=== PATIENT | female | born 1940 | race Caucasian/White ===

== ENCOUNTER → 2016-04-28 | Outpatient (CLI) | payer OTHER ==
[~2016-04-28] MED LIST: ADVAIR HFA1 AE2 IH; ALDACTONE 25MG25 M1 PO; AMLODIPINE BES2.5 MG PO; AMLODIPINE BESYL5 MG PO; ASPIRIN 81M81 MG/TA2 PO; BYETTA 5MC300 MCG/SY SQ; CALCIUM + D 6001 TA1 PO; CALCIUM500 MG PO; CENTRUM PERFORM1 TAB PO; CHLORTHALIDONE25 MG PO; COMBIVENT INH14.7 GM IH; COUMADIN 2MG2 MG/TAB PO; COUMADIN4 MG PO; COUMADIN5 M1 PO; COZAAR100 MG PO; CYMBALTA60 MG PO; DARVOCET N 101 UDTAB PO; DIABETA5 MG PO; DIOVAN160 M1 PO; EC NAPROSYN500 MG PO; FLOVENT 220MCG7.9 GM IH; FOLIC ACID 11 MG/TA1 PO; FOLIC ACID1 MG PO; GLUCOPHAGE XR500 M1 PO; GLUCOTROL 5M5 MG/TAB PO; GLYBURIDE5 MG PO; GUANFACINE1 MG PO; HYGROTON 2525 MG/TAB PO; HYGROTON25 MG PO; HYZAAR 50-12.1 UDTAB PO; INDAPAMIDE2.5 MG PO; KLOR-CON 1010 MEQ PO; KLOR-CON 88 MEQ PO; LANTUS SOLOS100 U/ML SC; LANTUS SOLOS100 U/ML SQ; LEVOTHYROXINE0.1 MG PO; LEVOTHYROXINE0.15 MG PO; LOPRESSOR 225 MG/TAB PO; LOVENOX80 MG/0.8 SC; LOZOL2.5 MG PO; METFORMIN500 MG PO; METHOTREXA2.5 MG/TAB PO; METHOTREXATE2.5 M1 PO; METHOTREXATE2.5 MG PO; METOPROLOL25 MG PO; MICRO-K EXTENCA8 MEQ PO; MULTIVITAMIN1 SGL PO; NEURONTIN100 MG PO; NEURONTIN100 MG/CAP PO; NORCO 325 MG-51 TAB PO; NORVASC 5MG5 MG/TAB PO; NOVOLOG 100U100 U/M1 SQ; NOVOLOG FLEX100 U/ML IV; NOVOLOG FLEX100 U/ML SC; OMEPRAZOLE20 MG PO; OS-CAL 500500 M1 PO; PRILOSEC 20MG20 MG PO; PROAIR HFA0.09 MG/AC; PROAIR HFA0.09 MG/AC IH; SLOW-MAG 6464 MG/TAB PO; SYNTHROID 0.10.15 MG PO; SYNTHROID0.125 MG PO; SYNTHROID0.125 MG/T PO; TENEX1 MG PO; THERAGRAN1 TA1 PO; TYLENOL 500MG500 MG PO; VITAMIN D3400 IU PO; VITAMIN E 400 U4001 PO; ZESTRIL 5MG5 MG PO; ZOCOR 20MG20 MG PO; ZOCOR 40MG40 MG; ZOCOR10 MG PO; ZYRTEC 10MG10 MG PO; [UNRECOGNIZED DRUG - OTHER] PO
== END ==
LOC: SUN.DIA 10:15
DX: E11.65 Type 2 diabetes mellitus with hyperglycemia (principal); Z79.84 Long term (current) use of oral hypoglycemic drugs; Z79.4 Long term (current) use of insulin; E66.9 Obesity, unspecified; Z68.39 Body mass index [BMI] 39.0-39.9, adult; Z71.3 Dietary counseling and surveillance; E78.5 Hyperlipidemia, unspecified; I10 Essential (primary) hypertension; E03.9 Hypothyroidism, unspecified; I51.9 Heart disease, unspecified; I73.9 Peripheral vascular disease, unspecified

== ENCOUNTER → 2016-05-06 | Outpatient (CLI) | payer OTHER | LOC: COL.RAD 09:00 | DX: N18.9 Chronic kidney disease, unspecified (principal) ==

== ENCOUNTER → 2016-07-27 | Outpatient (CLI) | payer OTHER | LOC: SUN.DIA 13:54 | DX: E11.65 Type 2 diabetes mellitus with hyperglycemia (principal); E66.9 Obesity, unspecified; Z68.41 Body mass index [BMI] 40.0-44.9, adult; Z71.3 Dietary counseling and surveillance; I73.9 Peripheral vascular disease, unspecified; E78.5 Hyperlipidemia, unspecified; I10 Essential (primary) hypertension; E03.9 Hypothyroidism, unspecified ==

== ENCOUNTER → 2016-09-07 | Outpatient (CLI) | payer MEDICARE, OTHER | LOC: MC.RAD 10:09 | DX: Z12.31 Encounter for screening mammogram for malignant neoplasm of breast (principal); R92.1 Mammographic calcification found on diagnostic imaging of breast ==

== ENCOUNTER → 2016-10-26 | Outpatient (CLI) | payer MEDICARE, OTHER | LOC: SUN.DIA 10:15 | DX: E11.51 Type 2 diabetes mellitus with diabetic peripheral angiopathy without gangrene (principal); Z79.4 Long term (current) use of insulin; I11.9 Hypertensive heart disease without heart failure; E78.5 Hyperlipidemia, unspecified; E03.9 Hypothyroidism, unspecified; E66.9 Obesity, unspecified; Z68.41 Body mass index [BMI] 40.0-44.9, adult; Z71.3 Dietary counseling and surveillance | CPT/HCPCS: G0108 ==

== ENCOUNTER → 2017-01-25 | Outpatient (CLI) | payer MEDICARE, OTHER | LOC: SUN.DIA 07:52 | DX: Z01.89 Encounter for other specified special examinations (principal) ==

== ENCOUNTER → 2017-03-01 | Outpatient (CLI) | payer MEDICARE, OTHER | LOC: SUN.DIA 02-16 10:37 | DX: E11.51 Type 2 diabetes mellitus with diabetic peripheral angiopathy without gangrene (principal); Z79.4 Long term (current) use of insulin; I11.9 Hypertensive heart disease without heart failure; E78.5 Hyperlipidemia, unspecified; E03.9 Hypothyroidism, unspecified; E66.9 Obesity, unspecified; Z68.39 Body mass index [BMI] 39.0-39.9, adult; Z71.3 Dietary counseling and surveillance | CPT/HCPCS: G0108 ==

== ENCOUNTER → 2017-04-12 | Outpatient (CLI) | payer MEDICARE, OTHER | LOC: SUN.DIA 03-08 08:40 | DX: E11.51 Type 2 diabetes mellitus with diabetic peripheral angiopathy without gangrene (principal); Z79.4 Long term (current) use of insulin; E78.5 Hyperlipidemia, unspecified; I11.9 Hypertensive heart disease without heart failure; E03.9 Hypothyroidism, unspecified; E66.9 Obesity, unspecified; Z71.3 Dietary counseling and surveillance | CPT/HCPCS: G0108 ==

== ENCOUNTER → 2017-06-01 | Outpatient (CLI) | payer MEDICARE, OTHER | LOC: SUN.DIA 04-21 11:40 | DX: E11.51 Type 2 diabetes mellitus with diabetic peripheral angiopathy without gangrene (principal); Z79.4 Long term (current) use of insulin; E78.5 Hyperlipidemia, unspecified; E03.9 Hypothyroidism, unspecified; I11.9 Hypertensive heart disease without heart failure; E66.9 Obesity, unspecified; Z68.37 Body mass index [BMI] 37.0-37.9, adult; Z71.3 Dietary counseling and surveillance | CPT/HCPCS: G0108 ==

== ENCOUNTER → 2017-06-01 | Outpatient (CLI) | payer MEDICARE, OTHER | LOC: SUN.DIA 15:32 | DX: E11.51 Type 2 diabetes mellitus with diabetic peripheral angiopathy without gangrene (principal); Z79.4 Long term (current) use of insulin; I11.9 Hypertensive heart disease without heart failure; E78.5 Hyperlipidemia, unspecified; E03.9 Hypothyroidism, unspecified; E66.9 Obesity, unspecified; Z68.37 Body mass index [BMI] 37.0-37.9, adult; Z71.3 Dietary counseling and surveillance | CPT/HCPCS: G0108 ==

== ENCOUNTER → 2017-08-02 | Outpatient (CLI) | payer MEDICARE | LOC: SUN.DIA 07-13 09:12 | DX: E11.51 Type 2 diabetes mellitus with diabetic peripheral angiopathy without gangrene (principal); Z79.4 Long term (current) use of insulin; I11.9 Hypertensive heart disease without heart failure; E78.5 Hyperlipidemia, unspecified; E03.9 Hypothyroidism, unspecified; E66.9 Obesity, unspecified; Z68.37 Body mass index [BMI] 37.0-37.9, adult; Z71.3 Dietary counseling and surveillance | CPT/HCPCS: G0108 ==

== ENCOUNTER → 2017-08-18 | Outpatient (CLI) | payer MEDICARE | LOC: SUN.DIA 15:43 | DX: E11.40 Type 2 diabetes mellitus with diabetic neuropathy, unspecified (principal); E11.51 Type 2 diabetes mellitus with diabetic peripheral angiopathy without gangrene; Z79.4 Long term (current) use of insulin; I11.9 Hypertensive heart disease without heart failure; E78.5 Hyperlipidemia, unspecified; E03.9 Hypothyroidism, unspecified; E66.9 Obesity, unspecified; Z68.37 Body mass index [BMI] 37.0-37.9, adult; Z71.3 Dietary counseling and surveillance | CPT/HCPCS: G0108 ==

== ENCOUNTER → 2017-11-18 | Outpatient (CLI) | payer MEDICARE | LOC: SUN.DIA 14:05 | DX: E11.40 Type 2 diabetes mellitus with diabetic neuropathy, unspecified (principal); I73.9 Peripheral vascular disease, unspecified; Z79.4 Long term (current) use of insulin; E78.5 Hyperlipidemia, unspecified; E03.9 Hypothyroidism, unspecified; I10 Essential (primary) hypertension; E66.9 Obesity, unspecified | CPT/HCPCS: G0108 ==

== ENCOUNTER → 2017-12-23 | Outpatient (CLI) | payer MEDICARE | LOC: SUN.DIA 11:36 | DX: E11.40 Type 2 diabetes mellitus with diabetic neuropathy, unspecified (principal); I73.9 Peripheral vascular disease, unspecified; E78.5 Hyperlipidemia, unspecified; I10 Essential (primary) hypertension; E66.9 Obesity, unspecified | CPT/HCPCS: G0108 ==

== ENCOUNTER 2018-03-11 20:48 | Emergency (ER) | payer MEDICARE ==
[~2018-03-11] VITALS: Ht 152.4 cm; Wt 86.4 kg
[~2018-03-11 20:48] MED LIST changes: -PROAIR HFA0.09 MG/AC; +ZITHROMAX Z PA250 MG PO; -ZOCOR 40MG40 MG; +ZOCOR 40MG40 MG PO
[2018-03-11 21:00] VITALS: BP 182/106; TEMP 97.7
[2018-03-11 21:41] LABS: INR 2.6 (0.8-3.0)
[2018-03-11 23:41] VITALS: PULSE 78
[2018-03-12] VITALS (239 sets, daily range): O2SAT 78–97
[2018-03-12] MEDS ORDERED: COUMADIN 3MG3 MG/TAB PO (09:42)
[2018-03-12] MEDS ORDERED: TESSALON P100 MG/CAP PO (09:42)
[2018-03-12] MEDS ORDERED: ZITHROMAX 250M250 MG PO (09:42)
[2018-03-12] MEDS ORDERED: TRESIBA FL200 UNIT/1 SQ (09:44)
[2018-03-12] MEDS ORDERED: TRULICITY1.5 MG/0.5 SQ (09:45)
[2018-03-12] MEDS ORDERED: LEXAPRO 10MG10 MG PO ×2 (09:54→17:27)
[2018-03-12] MEDS ORDERED: FORTAMET500 M1 PO (17:26)
[2018-03-12] MEDS ORDERED: NOVOLOG MIX 70/33 ML SQ (17:29)
[2018-03-13] VITALS (666 sets, daily range): O2SAT 87–99
== END 2018-03-11 23:45 | disposition home or self-care (01) ==
LOC: COL.ER 20:48
PROVIDERS: Emergency Medicine
DX: S02.2XXA Fracture of nasal bones, initial encounter for closed fracture (principal); S01.511A Laceration without foreign body of lip, initial encounter; E11.9 Type 2 diabetes mellitus without complications; E78.5 Hyperlipidemia, unspecified; E03.9 Hypothyroidism, unspecified; Z79.01 Long term (current) use of anticoagulants; Z86.718 Personal history of other venous thrombosis and embolism; Z79.4 Long term (current) use of insulin; Z79.51 Long term (current) use of inhaled steroids; W19.XXXA Unspecified fall, initial encounter
CPT/HCPCS: J3010

== ENCOUNTER 2018-03-12 06:52 | Inpatient (IN) | payer MEDICARE ==
[2018-03-12] VITALS (9 sets, daily range): BP systolic 142–163; BP diastolic 55–78; PULSE 68–97; TEMP 97.5–99.3; O2SAT 96–97
[~2018-03-12] VITALS: Ht 152.4 cm; Wt 84.0 kg
[2018-03-12 07:46] LABS: BASO # 0.1 (0.0-0.2); BASO % 0.4 % (0.0-2.0); EOS % 0.1 % (0-4.0); GRAN # 13.5 (1.4-6.5); GRAN % 86.4 % (42.2-75.2); HEMATOCRIT 42.9 % (37.0-47.0); HEMOGLOBIN 15.4 g/dl (12.5-16.0); LYMPH # 1.1 (1.2-3.4); LYMPH % 7.3 % (20.0-51.0); MEAN CELL VOLUME 90 fl (80.0-100.0); MEAN CORPUSCULAR HEMOGLOBIN 32 pg (27.0-31.0); MEAN CORPUSCULAR HGB CONC 36 g/dl (33.0-37.0); MONO # 0.8 (0.1-0.6); MONO % 5.2 % (1.7-9.3); PLATELET COUNT 239 K/mm3 (130-400); RED BLOOD COUNT 4.75 M/mm3 (4.10-5.30); REDCELL DISTRIBUTION WIDTH-CV 12.1 % (11.5-14.5)
[2018-03-12 08:20] LABS: COLLECTION METHOD CLEAN CATCH
[2018-03-12 08:21] LABS: INR 2.4 (0.8-3.0); PROTHROMBIN TIME 27.6 SECONDS (9.7-12.8)
[2018-03-12 08:31] LABS: ALBUMIN 4.4 gm/dL (3.5-5.0); BILIRUBIN,TOTAL 0.8 mg/dL (0.0-1.0); CALCIUM 9.2 mg/dL (8.4-10.2); CREATININE, serum 1.05 mg/dL (0.52-1.25); POTASSIUM 3.6 mmol/L (3.4-5.0); TOTAL PROTEIN 7.7 gm/dL (6.4-8.2)
[2018-03-12 08:35] LABS: PH 6 (5-8); SQUAMOUS EPITHELIAL None Seen /hpf; URINE APPEARANCE Clear; URINE BACTERIA None Seen /hpf; URINE BILIRUBIN Negative (NEGATIVE); URINE BLOOD 1+ (NEGATIVE); URINE COLOR Straw; URINE GLUCOSE 3+ (NEGATIVE); URINE KETONE 1+ (NEGATIVE); URINE LEUKOCYTE ESTERASE Negative (NEGATIVE); URINE NITRATE Negative (NEGATIVE); URINE PROTEIN(semi-quant) 3+ (NEGATIVE); URINE UROBILINOGEN Negative (NEGATIVE)
[2018-03-12] MEDS ORDERED: COUMADIN 3MG3 MG/TAB PO (09:42)
[2018-03-12] MEDS ORDERED: ZITHROMAX 250M250 MG PO (09:42)
[2018-03-12] MEDS ORDERED: TESSALON P100 MG/CAP PO (09:42)
[2018-03-12] MEDS ORDERED: TRESIBA FL200 UNIT/1 SQ (09:44)
[2018-03-12] MEDS ORDERED: TRULICITY1.5 MG/0.5 SQ (09:45)
[2018-03-12] MEDS ORDERED: LEXAPRO 10MG10 MG PO ×2 (09:54→17:27)
[2018-03-12] MEDS ORDERED: FORTAMET500 M1 PO (17:26)
[2018-03-12] MEDS ORDERED: NOVOLOG MIX 70/33 ML SQ (17:29)
[2018-03-13] VITALS (9 sets, daily range): BP systolic 112–153; BP diastolic 40–95; PULSE 50–64; TEMP 97.5–98.2
[2018-03-13 05:52] LABS: BASO % 0.2 % (0.0-2.0); EOS % 0.2 % (0-4.0); GRAN # 10.2 (1.4-6.5); GRAN % 77.1 % (42.2-75.2); LYMPH # 1.9 (1.2-3.4); MEAN CELL VOLUME 94 fl (80.0-100.0); MEAN CORPUSCULAR HGB CONC 34 g/dl (33.0-37.0); MEAN PLATELET VOLUME 10.5 fl (7.4-10.4); MONO # 1.1 (0.1-0.6); PLATELET COUNT 209 K/mm3 (130-400); RED BLOOD COUNT 3.68 M/mm3 (4.10-5.30); REDCELL DISTRIBUTION WIDTH-CV 12.8 % (11.5-14.5)
[2018-03-13 05:56] LABS: HEMATOCRIT 34.4 % (37.0-47.0); HEMOGLOBIN 11.8 g/dl (12.5-16.0); MEAN CORPUSCULAR HEMOGLOBIN 32 pg (27.0-31.0)
[2018-03-13 06:03] LABS: INR 2.5 (0.8-3.0); PROTHROMBIN TIME 28.2 SECONDS (9.7-12.8)
[2018-03-13 06:14] LABS: POTASSIUM 3.1 mmol/L (3.4-5.0)
[2018-03-13 12:32] LABS: HEMOGLOBIN 10.8 g/dl (12.5-16.0)
[2018-03-13 12:33] LABS: HEMATOCRIT 31.7 % (37.0-47.0)
[2018-03-14] VITALS (7 sets, daily range): BP systolic 144–175; BP diastolic 41–67; PULSE 53–61; TEMP 96.5–98.4
[2018-03-14 06:28] LABS: BASO # 0.1 (0.0-0.2); BASO % 0.6 % (0.0-2.0); EOS # 0.3 (0.0-0.7); EOS % 2.6 % (0-4.0); GRAN # 7.1 (1.4-6.5); GRAN % 69.3 % (42.2-75.2); HEMOGLOBIN 11.6 g/dl (12.5-16.0); LYMPH % 19.1 % (20.0-51.0); MEAN CELL VOLUME 94 fl (80.0-100.0); MEAN CORPUSCULAR HEMOGLOBIN 32 pg (27.0-31.0); MEAN CORPUSCULAR HGB CONC 34 g/dl (33.0-37.0); MEAN PLATELET VOLUME 10.3 fl (7.4-10.4); MONO # 0.8 (0.1-0.6); MONO % 7.9 % (1.7-9.3); PLATELET COUNT 206 K/mm3 (130-400); RED BLOOD COUNT 3.59 M/mm3 (4.10-5.30); REDCELL DISTRIBUTION WIDTH-CV 12.6 % (11.5-14.5)
[2018-03-14 06:31] LABS: HEMATOCRIT 33.7 % (37.0-47.0)
[2018-03-14 06:36] LABS: CALCIUM 8.4 mg/dL (8.4-10.2); CREATININE, serum 1.11 mg/dL (0.52-1.25); MAGNESIUM 1.9 mg/dL (1.6-2.3); POTASSIUM 3.8 mmol/L (3.4-5.0)
[2018-03-14 10:18] LABS: PROTHROMBIN TIME 22.5 SECONDS (9.7-12.8)
[2018-03-15] VITALS (8 sets, daily range): BP systolic 139–175; BP diastolic 53–75; PULSE 54–58; TEMP 97.7–99.6
[2018-03-15 07:08] LABS: BASO # 0.1 (0.0-0.2); BASO % 0.4 % (0.0-2.0); EOS # 0.3 (0.0-0.7); EOS % 2.2 % (0-4.0); GRAN # 9.6 (1.4-6.5); GRAN % 80.2 % (42.2-75.2); HEMOGLOBIN 11.4 g/dl (12.5-16.0); LYMPH # 1.4 (1.2-3.4); LYMPH % 11.8 % (20.0-51.0); MEAN CELL VOLUME 94 fl (80.0-100.0); MEAN CORPUSCULAR HEMOGLOBIN 33 pg (27.0-31.0); MEAN CORPUSCULAR HGB CONC 35 g/dl (33.0-37.0); MEAN PLATELET VOLUME 10.3 fl (7.4-10.4); MONO # 0.6 (0.1-0.6); PLATELET COUNT 181 K/mm3 (130-400); RED BLOOD COUNT 3.51 M/mm3 (4.10-5.30); REDCELL DISTRIBUTION WIDTH-CV 12.5 % (11.5-14.5)
[2018-03-15 07:21] LABS: CALCIUM 8.7 mg/dL (8.4-10.2); CREATININE, serum 1.04 mg/dL (0.52-1.25); POTASSIUM 3.5 mmol/L (3.4-5.0)
[2018-03-16 04:45] VITALS: BP 159/49; PULSE 55; TEMP 97.2
[2018-03-16 06:12] LABS: BASO # 0.1 (0.0-0.2); BASO % 0.5 % (0.0-2.0); EOS # 0.3 (0.0-0.7); GRAN # 7.3 (1.4-6.5); GRAN % 73.9 % (42.2-75.2); LYMPH # 1.4 (1.2-3.4); LYMPH % 14.5 % (20.0-51.0); MEAN CELL VOLUME 93 fl (80.0-100.0); MEAN CORPUSCULAR HEMOGLOBIN 32 pg (27.0-31.0); MEAN CORPUSCULAR HGB CONC 35 g/dl (33.0-37.0); MEAN PLATELET VOLUME 10.4 fl (7.4-10.4); MONO # 0.8 (0.1-0.6); MONO % 7.7 % (1.7-9.3); PLATELET COUNT 191 K/mm3 (130-400); REDCELL DISTRIBUTION WIDTH-CV 12.4 % (11.5-14.5)
[2018-03-16 06:13] LABS: HEMATOCRIT 34.3 % (37.0-47.0)
[2018-03-16 06:24] LABS: CALCIUM 8.9 mg/dL (8.4-10.2); CREATININE, serum 0.95 mg/dL (0.52-1.25); POTASSIUM 3.3 mmol/L (3.4-5.0)
[2018-03-16 07:46] VITALS: BP 155/71; PULSE 57; TEMP 98.2
[2018-03-16] MEDS ORDERED: LIPITOR 80MG80 MG PO (07:54)
[2018-03-16] MEDS ORDERED: ASPIRIN 81M81 MG/TA2 PO (07:55)
[2018-03-16] MEDS ORDERED: COZAAR 50MG50 MG/TAB PO (19:19)
== END 2018-03-16 10:40 | DRG 65 ==
LOC: COL.ER 06:52 → MEDICAL 09:38 → ICU 09:38 → MEDICAL 03-13 13:36
PROVIDERS: Family Medicine; Internal Medicine; Physician Assistant
DX: I63.9 Cerebral infarction, unspecified (principal); E87.2 Acidosis; E87.1 Hypo-osmolality and hyponatremia; I16.0 Hypertensive urgency; E11.43 Type 2 diabetes mellitus with diabetic autonomic (poly)neuropathy; I95.1 Orthostatic hypotension; I10 Essential (primary) hypertension; E87.6 Hypokalemia; M79.7 Fibromyalgia; M06.9 Rheumatoid arthritis, unspecified; Z86.718 Personal history of other venous thrombosis and embolism; Z79.01 Long term (current) use of anticoagulants; E78.5 Hyperlipidemia, unspecified; Z91.14 Patient's other noncompliance with medication regimen; S02.2XXA Fracture of nasal bones, initial encounter for closed fracture; W18.30XA Fall on same level, unspecified, initial encounter; N20.0 Calculus of kidney; Z91.81 History of falling
CPT/HCPCS: 99223-AI; 99232-AI; 99233-AI; 99239; A9585; J1815; J1885; J2405; J3010; J3475; J3480; J7030; J7050; Q9967

== ENCOUNTER 2018-03-16 10:41 | Inpatient (IN) | payer MEDICARE ==
[~2018-03-16] VITALS: Ht 152.4 cm; Wt 85.6 kg
[~2018-03-16 10:41] MED LIST changes: +COUMADIN 3MG3 MG/TAB PO; +FORTAMET500 M1 PO; +LEXAPRO 10MG10 MG PO; +LIPITOR 80MG80 MG PO; +NOVOLOG MIX 70/33 ML SQ; +TESSALON P100 MG/CAP PO; +TRESIBA FL200 UNIT/1 SQ; +TRULICITY1.5 MG/0.5 SQ; +ZITHROMAX 250M250 MG PO
[2018-03-16 18:32] VITALS: BP 179/58; PULSE 58; TEMP 98.3
[2018-03-16 18:36] VITALS: BP 170/60; PULSE 60; TEMP 98
[2018-03-16] MEDS ORDERED: COZAAR 50MG50 MG/TAB PO (19:19)
[2018-03-17 02:16] VITALS: BP 206/76; PULSE 54; TEMP 98.4
[2018-03-17 02:59] VITALS: BP 182/64; BP 182/68
[2018-03-17 05:34] VITALS: BP 185/64; PULSE 57
[2018-03-17 12:29] LABS: BASO # 0.1 (0.0-0.2); BASO % 0.5 % (0.0-2.0); EOS # 0.3 (0.0-0.7); EOS % 2.2 % (0-4.0); GRAN # 9.9 (1.4-6.5); GRAN % 76.1 % (42.2-75.2); HEMOGLOBIN 12.4 g/dl (12.5-16.0); LYMPH # 1.8 (1.2-3.4); LYMPH % 14.1 % (20.0-51.0); MEAN CELL VOLUME 93 fl (80.0-100.0); MEAN CORPUSCULAR HEMOGLOBIN 32 pg (27.0-31.0); MEAN CORPUSCULAR HGB CONC 35 g/dl (33.0-37.0); MEAN PLATELET VOLUME 10.4 fl (7.4-10.4); MONO # 0.9 (0.1-0.6); MONO % 6.7 % (1.7-9.3); PLATELET COUNT 230 K/mm3 (130-400); RED BLOOD COUNT 3.85 M/mm3 (4.10-5.30); REDCELL DISTRIBUTION WIDTH-CV 12.8 % (11.5-14.5)
[2018-03-17 12:31] LABS: HEMATOCRIT 35.9 % (37.0-47.0)
[2018-03-17 12:41] LABS: PROTHROMBIN TIME 22.8 SECONDS (9.7-12.8)
[2018-03-17 12:46] LABS: ALBUMIN 3.5 gm/dL (3.5-5.0); BILIRUBIN,TOTAL 0.7 mg/dL (0.0-1.0); CALCIUM 8.9 mg/dL (8.4-10.2); CREATININE, serum 1.18 mg/dL (0.52-1.25); MAGNESIUM 1.3 mg/dL (1.6-2.3); POTASSIUM 3.8 mmol/L (3.4-5.0); TOTAL PROTEIN 6.4 gm/dL (6.4-8.2)
[2018-03-17 15:12] VITALS: BP 150/53; PULSE 58; TEMP 97.7
[2018-03-18 03:24] VITALS: BP 164/49; PULSE 56; TEMP 98.5
[2018-03-18 06:58] LABS: INR 1.9 (0.8-3.0); PROTHROMBIN TIME 21.5 SECONDS (9.7-12.8)
[2018-03-18 08:34] VITALS: BP 148/53; PULSE 59
[2018-03-18 17:46] VITALS: BP 150/58; PULSE 60; TEMP 98.7
[2018-03-19 04:43] VITALS: BP 159/60; PULSE 54; TEMP 97.8
[2018-03-19 05:57] LABS: INR 1.9 (0.8-3.0); PROTHROMBIN TIME 22.1 SECONDS (9.7-12.8)
[2018-03-19 18:37] VITALS: BP 147/44; PULSE 58; TEMP 98.5
[2018-03-20 04:20] VITALS: BP 154/52; PULSE 57; TEMP 98.2
[2018-03-20 06:04] LABS: INR 2.1 (0.8-3.0); PROTHROMBIN TIME 23.5 SECONDS (9.7-12.8)
[2018-03-20 16:45] VITALS: BP 188/71; PULSE 61; TEMP 97.7
[2018-03-20 18:04] VITALS: BP 143/38; PULSE 58
[2018-03-21 04:11] VITALS: BP 145/43; PULSE 51; TEMP 97.8
[2018-03-21 07:16] LABS: INR 2.1 (0.8-3.0); PROTHROMBIN TIME 23.5 SECONDS (9.7-12.8)
[2018-03-21 15:09] VITALS: BP 117/39; PULSE 55; TEMP 98.3
[2018-03-22 05:23] VITALS: BP 175/49; PULSE 53; TEMP 98.3
[2018-03-22 05:25] VITALS: BP 173/55; PULSE 51
[2018-03-22 05:26] VITALS: BP 147/59; PULSE 57
[2018-03-22 06:40] LABS: INR 2.2 (0.8-3.0); PROTHROMBIN TIME 25.5 SECONDS (9.7-12.8)
[2018-03-22 09:00] VITALS: BP 151/51
[2018-03-22 17:51] VITALS: BP 151/51; PULSE 56; TEMP 98.3
[2018-03-23 05:00] VITALS: BP 148/47; PULSE 58; TEMP 97.9
[2018-03-23 05:02] VITALS: BP 148/59; PULSE 63
[2018-03-23 05:03] VITALS: BP 163/66; PULSE 69
[2018-03-23 06:48] LABS: BASO # 0.1 (0.0-0.2); BASO % 0.6 % (0.0-2.0); EOS # 0.3 (0.0-0.7); EOS % 3.7 % (0-4.0); GRAN # 5.9 (1.4-6.5); GRAN % 66.1 % (42.2-75.2); HEMOGLOBIN 10.7 g/dl (12.5-16.0); LYMPH # 1.9 (1.2-3.4); LYMPH % 20.7 % (20.0-51.0); MEAN CELL VOLUME 97 fl (80.0-100.0); MEAN CORPUSCULAR HEMOGLOBIN 32 pg (27.0-31.0); MEAN CORPUSCULAR HGB CONC 33 g/dl (33.0-37.0); MEAN PLATELET VOLUME 10.5 fl (7.4-10.4); MONO # 0.8 (0.1-0.6); MONO % 8.7 % (1.7-9.3); PLATELET COUNT 204 K/mm3 (130-400); RED BLOOD COUNT 3.33 M/mm3 (4.10-5.30); REDCELL DISTRIBUTION WIDTH-CV 12.9 % (11.5-14.5)
[2018-03-23 06:49] LABS: HEMATOCRIT 32.3 % (37.0-47.0)
[2018-03-23 06:56] LABS: INR 2.3 (0.8-3.0); PROTHROMBIN TIME 26.3 SECONDS (9.7-12.8)
[2018-03-23 07:04] LABS: CALCIUM 9.1 mg/dL (8.4-10.2); CREATININE, serum 1.17 mg/dL (0.52-1.25); MAGNESIUM 1.3 mg/dL (1.6-2.3)
[2018-03-23 17:34] VITALS: BP 144/54; PULSE 60; TEMP 98.5
[2018-03-24 04:01] VITALS: BP 145/49; PULSE 57; TEMP 98.5
[2018-03-24 06:17] VITALS: BP 156/49
[2018-03-24 06:43] LABS: RETIC # 0.07 M/mm3 (0.02-0.16)
[2018-03-24 07:01] LABS: INR 2.2 (0.8-3.0)
[2018-03-24 07:09] LABS: IRON,SERUM 55 ug/dL (35-150)
[2018-03-24 07:18] LABS: TOTAL IRON BINDING CAPACITY 333 ug/dL (265-497)
[2018-03-24 07:43] LABS: FERRITIN 29 ng/mL (11-264)
[2018-03-24 17:39] VITALS: BP 171/66; PULSE 56; TEMP 98.5
[2018-03-24 18:14] LABS: FOLATE (FOLIC ACID) 13.4 ng/mL (7.0-31.4)
[2018-03-25 05:20] VITALS: BP 129/50; PULSE 58; TEMP 98.5
[2018-03-25 06:02] VITALS: BP 171/52; PULSE 57
[2018-03-25 06:04] VITALS: BP 167/54; PULSE 63
[2018-03-25] MEDS ORDERED: COUMADIN 2MG2 MG/TAB PO (09:07)
[2018-03-25] MEDS ORDERED: COUMADIN 1MG1 MG/TAB PO (09:08)
[2018-03-25] MEDS ORDERED: LOPRESSOR 225 MG/TAB PO (09:08)
[2018-03-25] MEDS ORDERED: COZAAR100 MG PO (09:09)
[2018-03-25] MEDS ORDERED: ALDACTONE50 MG PO (09:09)
[2018-03-25] MEDS ORDERED: FERRO-TIME325 MG PO (09:11)
== END 2018-03-25 14:10 | disposition home or self-care (01) | DRG 57 ==
PROVIDERS: Internal Medicine
DX: I69.354 Hemiplegia and hemiparesis following cerebral infarction affecting left non-dominant side (principal); E11.65 Type 2 diabetes mellitus with hyperglycemia; I10 Essential (primary) hypertension; S02.2XXD Fracture of nasal bones, subsequent encounter for fracture with routine healing; W18.30XD Fall on same level, unspecified, subsequent encounter; E78.5 Hyperlipidemia, unspecified; M79.7 Fibromyalgia; M06.9 Rheumatoid arthritis, unspecified; J45.909 Unspecified asthma, uncomplicated; Z79.4 Long term (current) use of insulin; Z91.81 History of falling; Z79.01 Long term (current) use of anticoagulants; E87.6 Hypokalemia; I95.1 Orthostatic hypotension; E11.43 Type 2 diabetes mellitus with diabetic autonomic (poly)neuropathy
CPT/HCPCS: 99223-AI; 99232-AI; 99233-AI; 99239; J1815

== ENCOUNTER 2018-04-03 13:01 | Inpatient (IN) | payer MEDICARE ==
[2018-04-03] VITALS (331 sets, daily range): BP systolic 138–189; BP diastolic 69–102; PULSE 62–75; TEMP 98.7–98.9; O2SAT 93–100
[~2018-04-03] VITALS: Ht 152.4 cm; Wt 86.0 kg
[~2018-04-03 13:01] MED LIST changes: +ALDACTONE50 MG PO; +COUMADIN 1MG1 MG/TAB PO; +COZAAR 50MG50 MG/TAB PO; +FERRO-TIME325 MG PO
[2018-04-03 13:32] LABS: BASO # 0.1 (0.0-0.2); BASO % 0.7 % (0.0-2.0); EOS # 0.4 (0.0-0.7); EOS % 3.3 % (0-4.0); GRAN # 8.2 (1.4-6.5); GRAN % 69.8 % (42.2-75.2); HEMATOCRIT 32.8 % (37.0-47.0); HEMOGLOBIN 10.9 g/dl (12.5-16.0); LYMPH # 2.3 (1.2-3.4); LYMPH % 19.9 % (20.0-51.0); MEAN CELL VOLUME 97 fl (80.0-100.0); MEAN CORPUSCULAR HEMOGLOBIN 32 pg (27.0-31.0); MEAN CORPUSCULAR HGB CONC 33 g/dl (33.0-37.0); MEAN PLATELET VOLUME 10.6 fl (7.4-10.4); MONO # 0.7 (0.1-0.6); PLATELET COUNT 256 K/mm3 (130-400); RED BLOOD COUNT 3.38 M/mm3 (4.10-5.30); REDCELL DISTRIBUTION WIDTH-CV 13.7 % (11.5-14.5)
[2018-04-03 13:37] LABS: INR 1.7 (0.8-3.0)
[2018-04-03 13:43] LABS: ALBUMIN 4.2 gm/dL (3.5-5.0); BILIRUBIN,TOTAL 0.4 mg/dL (0.0-1.0); CALCIUM 10.2 mg/dL (8.4-10.2); CREATININE, serum 1.43 mg/dL (0.52-1.25); POTASSIUM 4.7 mmol/L (3.4-5.0); TOTAL PROTEIN 7.2 gm/dL (6.4-8.2)
[2018-04-03 13:54] LABS: TROPONIN-I 0.012 ng/mL (0.000-0.034)
[2018-04-03 14:20] LABS: COLLECTION METHOD CATHETER
[2018-04-03 14:33] LABS: HYALINE CAST >12 /lpf; PH 5 (5-8); SQUAMOUS EPITHELIAL 0-2 /hpf; URINE APPEARANCE Clear; URINE BACTERIA None Seen /hpf; URINE BILIRUBIN Negative (NEGATIVE); URINE BLOOD Negative (NEGATIVE); URINE COLOR Yellow; URINE GLUCOSE 3+ (NEGATIVE); URINE KETONE Negative (NEGATIVE); URINE LEUKOCYTE ESTERASE Negative (NEGATIVE); URINE NITRATE Negative (NEGATIVE); URINE PROTEIN(semi-quant) 1+ (NEGATIVE); URINE RBC 0-2 /hpf; URINE UROBILINOGEN Negative (NEGATIVE)
--- NOTE | 2018-04-03 18:42 | NUR ---
Patient arrives to room. She is oriented to room and call light. Granddaughter at bedside. Plan of care discussed. Blood sugar checked. No change to insulin gtt at this time. Care assumed.
--- NOTE | 2018-04-03 19:36 | NUR ---
BEDSIDE REPORT GIVEN TO DARION LUNDBERG
--- NOTE | 2018-04-03 21:01 | NUR ---
Patient has elevated BP, last pressure systolic 190; called Hospitalist to request PRN order.
[2018-04-04] VITALS (710 sets, daily range): BP systolic 119–214; BP diastolic 41–62; PULSE 63–81; TEMP 97.7–98.4; O2SAT 90–99
--- NOTE | 2018-04-04 00:31 | NUR ---
Assisted up to bathroom with assistance of two. Reported some initial dizziness after sitting up. Dangled for approximately one minute prior to ambulation. Gait shuffling but steady. No other concerns or complaints at this time.
--- NOTE | 2018-04-04 01:14 | NUR ---
Insulin on hold for last 4 hours due to blood glucose between 84-107. Hostpitalist notified. DC'd insulin drip and will transition to Sliding scale.
--- NOTE | 2018-04-04 04:00 | NUR ---
Patient resting in bed with eyes shut; sleeps between disturbances. No concerns at this time.
[2018-04-04 06:00] LABS: BASO # 0.1 (0.0-0.2); BASO % 0.5 % (0.0-2.0); EOS # 0.4 (0.0-0.7); EOS % 3.4 % (0-4.0); GRAN # 9.4 (1.4-6.5); GRAN % 72.4 % (42.2-75.2); LYMPH # 2.3 (1.2-3.4); LYMPH % 17.4 % (20.0-51.0); MEAN CELL VOLUME 97 fl (80.0-100.0); MEAN CORPUSCULAR HGB CONC 34 g/dl (33.0-37.0); MEAN PLATELET VOLUME 10.4 fl (7.4-10.4); MONO # 0.8 (0.1-0.6); MONO % 5.8 % (1.7-9.3); PLATELET COUNT 205 K/mm3 (130-400); REDCELL DISTRIBUTION WIDTH-CV 13.9 % (11.5-14.5)
[2018-04-04 06:04] LABS: INR 1.8 (0.8-3.0); PROTHROMBIN TIME 20.5 SECONDS (9.7-12.8)
[2018-04-04 06:15] LABS: HEMOGLOBIN 8.9 g/dl (12.5-16.0); MEAN CORPUSCULAR HEMOGLOBIN 33 pg (27.0-31.0)
[2018-04-04 06:16] LABS: HEMATOCRIT 26.3 % (37.0-47.0)
[2018-04-04 06:36] LABS: CALCIUM 9.1 mg/dL (8.4-10.2); CREATININE, serum 0.98 mg/dL (0.52-1.25); MAGNESIUM 1.1 mg/dL (1.6-2.3); POTASSIUM 3.9 mmol/L (3.4-5.0)
--- NOTE | 2018-04-04 07:15 | NUR ---
Report received from DARION Frazier.
--- NOTE | 2018-04-04 08:00 | NUR ---
Assessment completed. Pt resting in bed, easily arousable. denies any pain. Discussed plan of care r/t monitoring blood sugars and starting diet this morning. Pt verbalizes understanding. CAll light in reach.
--- NOTE | 2018-04-04 11:02 | NUR ---
horse stud worker attended clinical rounds and met with patient to discuss discharge planning. Patient was recently [facility] and is a 30 day readmission. Patient lives at home with her son. Patient was unable to successfully return home. Dr Antoine discussed the need for short term skilled care upon discharge. Worker provided [place] [facility] options and patient chose 1. [facility] and 2. [facility] and signed Choice form. Worker gave referrals and will await screening. Patient states she will talk to her children about her plan.
--- NOTE | 2018-04-04 11:30 | NUR ---
Rehab here at bedside. x1 assist pt to chair. Pt has steady gait. Tolerated well. Call light in reach.
--- NOTE | 2018-04-04 12:00 | NUR ---
Pt still up in chair. No complaints. VSS. Discussed plan of care r/t transferring to different room. Verbalized understanding.
--- NOTE | 2018-04-04 12:50 | NUR ---
Report given to DARION Barone
--- NOTE | 2018-04-04 12:55 | NUR ---
Pt transferred to room 327 via wheelchair. Call light in reach. Lunch tray set up for pt.
--- NOTE | 2018-04-04 13:59 | NUR ---
[facility] with [facility] accepts patient to skilled care and will need to obtain pre-authorization from [facility] prior to acceptance. Note, that tomorrow (04/05/2017) is a holiday and insurance is not open, therefore, no authorization for transfer can be obtained. Patient was moved to surgical floor, today, from ICU. Patient states she has talked with her children and they are aware and agree to the discharge plan.
--- NOTE | 2018-04-04 14:24 | NUR ---
First visit from the [facility] surgeon/general dermatologist. No needs right now.
--- NOTE | 2018-04-04 14:57 | NUR ---
Patient resting in bed. Report from nurse in ICU. Patient transferred to from [facility]. She has lunch & her MG replacement completed. Will continue to monitor
[2018-04-04] MEDS ORDERED: TRESIBA FL200 UNIT/1 SQ (15:52)
--- NOTE | 2018-04-04 16:05 | NUR ---
Pharmacy notifed about coumadin dosing. They placed order for tonight. They will continue to [facility].
--- NOTE | 2018-04-04 19:04 | NUR ---
Patient has been up and down to the bathroom one assist with walker steady gait. She did well with dinner insulin per orders. Report to Treasure ORLANDO
--- NOTE | 2018-04-04 19:20 | NUR ---
Patient resting in bed. Denies pain. A&O. Assessment WNL. IV fluids infusing to RF IV. Blood pressure WNL after PRN blood pressure medication administration. Will continue to monitor.
--- NOTE | 2018-04-04 20:40 | NUR ---
PT blood pressure WNL after PRN medication administered. Will continue to monitor.
[2018-04-05 03:13] VITALS: BP 130/40; PULSE 64; TEMP 98.5
--- NOTE | 2018-04-05 06:46 | NUR ---
Pt resting in bed after ambulating to bathroom. Report given to Cata ORLANDO and Judi ORLANDO. Pt slept well throughout the night. VSS after administration of PRN blood pressure meds.
[2018-04-05 07:29] LABS: BASO % 0.4 % (0.0-2.0); EOS # 0.4 (0.0-0.7); EOS % 3.5 % (0-4.0); GRAN # 7.7 (1.4-6.5); GRAN % 71.8 % (42.2-75.2); LYMPH # 1.9 (1.2-3.4); MEAN CELL VOLUME 99 fl (80.0-100.0); MEAN CORPUSCULAR HGB CONC 34 g/dl (33.0-37.0); MEAN PLATELET VOLUME 10.5 fl (7.4-10.4); MONO # 0.6 (0.1-0.6); MONO % 5.8 % (1.7-9.3); PLATELET COUNT 191 K/mm3 (130-400); RED BLOOD COUNT 2.65 M/mm3 (4.10-5.30); REDCELL DISTRIBUTION WIDTH-CV 14.1 % (11.5-14.5)
[2018-04-05 07:35] LABS: HEMATOCRIT 26.2 % (37.0-47.0); HEMOGLOBIN 8.8 g/dl (12.5-16.0); MEAN CORPUSCULAR HEMOGLOBIN 33 pg (27.0-31.0)
[2018-04-05 07:40] LABS: CALCIUM 9.1 mg/dL (8.4-10.2); CREATININE, serum 1.09 mg/dL (0.52-1.25); MAGNESIUM 1.7 mg/dL (1.6-2.3); POTASSIUM 4.1 mmol/L (3.4-5.0)
[2018-04-05 07:43] LABS: INR 1.6 (0.8-3.0); PROTHROMBIN TIME 18.4 SECONDS (9.7-12.8)
[2018-04-05 07:59] VITALS: BP 136/51; PULSE 67; TEMP 97.6
--- NOTE | 2018-04-05 09:25 | NUR ---
Nursing entered room this morning, patient resting in bed with eyes closed. Assessment complete. Patient ordered breakfast and was assisted to recliner, gait was fair, patient declined to use walker, only wanted one assit from staff as recliner was right next to the bed. After patient was finished with breakfast she was assisted with bathing and then back to bed. Nursing checked on patient at this time and she requested to get up and brush teeth and wash her face. Toleratated activity well. Balance was good with walker. Patient then assisted back to bed.
[2018-04-05 11:28] VITALS: BP 159/60; PULSE 58; TEMP 98.5
[2018-04-05 16:18] VITALS: BP 148/54; PULSE 65; TEMP 97.8
[2018-04-05 20:28] VITALS: BP 125/42; PULSE 66; TEMP 98.1
--- NOTE | 2018-04-05 21:45 | NUR ---
Assessment completed. Patient is A&O x 4, currently sitting up in bed visiting with daughter. VIET, on room air. Tele maintained. Reports that her left middle finger tip has bothered her throughout the day, went over patient being started on an antibiotic for her finger and verbalized understanding. Denies any nausea. Up with standby assist with walker and gait belt, gait is steady. Voiding with no difficulities. Denies any concerns or needs at this time. Bed is in a low position with call light in reach.
[2018-04-06 00:19] VITALS: BP 126/44; PULSE 67; TEMP 98.5
[2018-04-06 03:43] VITALS: BP 117/35; PULSE 66; TEMP 98.6
--- NOTE | 2018-04-06 06:45 | NUR ---
resting in bed, bedside shift report received from DARION Hankins, assisted up to bathroom
--- NOTE | 2018-04-06 07:09 | NUR ---
Patient has rested well through the night. VSS. Continues to deny any pain. Up through the night with standby assist with walker. Denies any concerns or needs. Report given to DARION Paige
--- NOTE | 2018-04-06 07:35 | NUR ---
resting in bed reviewing menu, full assessment completed, see interventions for further info, will ordr breakast soon
[2018-04-06 07:44] LABS: BASO # 0.1 (0.0-0.2); BASO % 0.5 % (0.0-2.0); EOS # 0.4 (0.0-0.7); EOS % 4.7 % (0-4.0); GRAN # 5.8 (1.4-6.5); GRAN % 62.5 % (42.2-75.2); LYMPH # 2.3 (1.2-3.4); LYMPH % 24.7 % (20.0-51.0); MEAN CELL VOLUME 98 fl (80.0-100.0); MEAN CORPUSCULAR HGB CONC 34 g/dl (33.0-37.0); MEAN PLATELET VOLUME 10.6 fl (7.4-10.4); MONO # 0.7 (0.1-0.6); MONO % 7.2 % (1.7-9.3); PLATELET COUNT 188 K/mm3 (130-400); RED BLOOD COUNT 2.52 M/mm3 (4.10-5.30); REDCELL DISTRIBUTION WIDTH-CV 14.2 % (11.5-14.5)
[2018-04-06 07:52] LABS: CALCIUM 8.8 mg/dL (8.4-10.2); CREATININE, serum 1.09 mg/dL (0.52-1.25)
[2018-04-06 08:00] LABS: HEMATOCRIT 24.7 % (37.0-47.0); HEMOGLOBIN 8.3 g/dl (12.5-16.0); MEAN CORPUSCULAR HEMOGLOBIN 33 pg (27.0-31.0)
[2018-04-06 08:07] VITALS: BP 156/60; PULSE 61; TEMP 98.6
[2018-04-06 08:31] LABS: INR 1.9 (0.8-3.0); PROTHROMBIN TIME 21.2 SECONDS (9.7-12.8)
--- NOTE | 2018-04-06 09:20 | NUR ---
Dr Cloud and care team in to see patient
--- NOTE | 2018-04-06 09:40 | NUR ---
ambulating in wills with physical therapy
--- NOTE | 2018-04-06 10:20 | NUR ---
SW met with patient to present IM and verbally discuss the contents. Patient is agreeable and signed the form. Copy provided to patient and original placed in the chart. Patient is dc today to [facility] for skilled care. Transport scheduled for 1pm
--- NOTE | 2018-04-06 10:51 | NUR ---
appears to be sleeping
[2018-04-06 11:07] VITALS: BP 156/60; PULSE 61; TEMP 98.6
[2018-04-06 11:10] VITALS: BP 129/47; PULSE 62; TEMP 97.9
--- NOTE | 2018-04-06 12:00 | NUR ---
sitting up in bed eating lunch, denies needs
[2018-04-06] MEDS ORDERED: MONODOX100 PO (12:30)
[2018-04-06] MEDS ORDERED: LOPRESSOR 225 MG/TAB PO ×2 (12:31→13:45)
[2018-04-06] MEDS ORDERED: COUMADIN4 MG PO (12:31)
[2018-04-06] MEDS ORDERED: ALDACTONE50 MG PO ×2 (12:31→13:45)
[2018-04-06] MEDS ORDERED: LEVEMIR100 U/ML SQ (12:33)
[2018-04-06] MEDS ORDERED: NOVLOG SQ (12:33)
--- NOTE | 2018-04-06 13:00 | NUR ---
resting in chair waiting for transver to [facility]
--- NOTE | 2018-04-06 13:25 | NUR ---
INT discontinued, into for transfer, discharged per WC
--- NOTE | 2018-04-06 13:37 | NUR ---
report called to DARION Anthony at [facility]
[2018-04-06] MEDS ORDERED: COZAAR100 MG PO (13:45)
--- NOTE | 2018-04-06 14:21 | NUR ---
Dr Landry's nurse called and stated the Dr does not want to see her until she leaves [facility] unless they feel she needs to be seen, called and notified Gabrielel RN at [facility] and she verbalizes understanding
== END 2018-04-06 13:37 | DRG 683 ==
LOC: COL.ER 13:01 → ICU 15:34 → JCC 15:34
PROVIDERS: Emergency Medicine; Nurse Practitioner Family; Physician Assistant; ADMIT Internal Medicine
DX: N17.9 Acute kidney failure, unspecified (principal); E87.2 Acidosis; E86.0 Dehydration; E11.65 Type 2 diabetes mellitus with hyperglycemia; I10 Essential (primary) hypertension; E11.40 Type 2 diabetes mellitus with diabetic neuropathy, unspecified; Z79.4 Long term (current) use of insulin; E78.5 Hyperlipidemia, unspecified; M79.7 Fibromyalgia; M06.9 Rheumatoid arthritis, unspecified; J45.909 Unspecified asthma, uncomplicated; Z86.718 Personal history of other venous thrombosis and embolism; Z79.01 Long term (current) use of anticoagulants; Z86.73 Personal history of transient ischemic attack (TIA), and cerebral infarction without residual deficits
CPT/HCPCS: 99223-AI; 99232-AI; 99233-AI; J0360; J1815; J3475; J7030

== ENCOUNTER 2018-05-16 06:54 | Day surgery (SDC) | payer MEDICARE ==
[~2018-05-16] VITALS: Ht 152.4 cm; Wt 38.9 kg
[2018-05-16] VITALS (7 sets, daily range): BP systolic 105–140; BP diastolic 50–81; PULSE 55–62; TEMP 98.2
[~2018-05-16 06:54] MED LIST changes: +LEVEMIR100 U/ML SQ; +MONODOX100 PO; +NOVLOG SQ
[2018-05-16] MEDS ORDERED: TESSALON P100 MG/CAP PO (08:14)
[2018-05-16] MEDS ORDERED: LIPITOR 80MG80 MG PO (08:15)
[2018-05-16] MEDS ORDERED: ASPIRIN 81M81 MG/TA2 PO (08:15)
[2018-05-16] MEDS ORDERED: IRON TABLETS325 MG PO (08:16)
[2018-05-16] MEDS ORDERED: NOVOLOG 100U100 U/M1 SQ (08:17)
[2018-05-16] MEDS ORDERED: ALDACTONE 25MG25 M1 PO (08:17)
[2018-05-16] MEDS ORDERED: LOPRESSOR 225 MG/TAB PO (08:18)
[2018-05-16] MEDS ORDERED: TRULICITY1.5 MG/0.5 SQ (08:19)
[2018-05-16] MEDS ORDERED: COZAAR100 MG PO (08:19)
[2018-05-16] MEDS ORDERED: COUMADIN4 MG PO (08:20)
[2018-05-16] MEDS ORDERED: LEVEMIR100 U/ML SQ (08:20)
--- NOTE | 2018-05-16 08:45 | NUR ---
Pt to procedure.
[2018-05-16 09:12] LABS: BASO # 0.1 (0.0-0.2); BASO % 0.5 % (0.0-2.0); EOS # 0.3 (0.0-0.7); EOS % 3.6 % (0-4.0); GRAN # 6.8 (1.4-6.5); GRAN % 74.3 % (42.2-75.2); LYMPH # 1.3 (1.2-3.4); LYMPH % 13.9 % (20.0-51.0); MEAN CELL VOLUME 103 fl (80.0-100.0); MEAN CORPUSCULAR HGB CONC 32 g/dl (33.0-37.0); MEAN PLATELET VOLUME 9.9 fl (7.4-10.4); MONO # 0.7 (0.1-0.6); MONO % 7.4 % (1.7-9.3); PLATELET COUNT 234 K/mm3 (130-400); RED BLOOD COUNT 2.76 M/mm3 (4.10-5.30); REDCELL DISTRIBUTION WIDTH-CV 14.3 % (11.5-14.5)
[2018-05-16 09:13] LABS: HEMATOCRIT 28.4 % (37.0-47.0); HEMOGLOBIN 9.1 g/dl (12.5-16.0); MEAN CORPUSCULAR HEMOGLOBIN 33 pg (27.0-31.0)
--- NOTE | 2018-05-16 11:00 | NUR ---
Discharge instructions given to pt.Pt verbalizes understanding.INT removed,catheter tip intact.
--- NOTE | 2018-05-16 11:45 | NUR ---
Pt transportaion arrived.Pt escorted out by Carlotta Martin.
== END 2018-05-16 11:47 | disposition home or self-care (01) ==
LOC: EUO 06:54 → SDCO 06:54
PROVIDERS: Pathology Anatomic Pathology & Clinical Pathology
DX: D50.9 Iron deficiency anemia, unspecified (principal); M06.9 Rheumatoid arthritis, unspecified; D72.829 Elevated white blood cell count, unspecified; D47.3 Essential (hemorrhagic) thrombocythemia; I10 Essential (primary) hypertension; E11.9 Type 2 diabetes mellitus without complications; I82.509 Chronic embolism and thrombosis of unspecified deep veins of unspecified lower extremity; J45.909 Unspecified asthma, uncomplicated; G47.33 Obstructive sleep apnea (adult) (pediatric); M19.90 Unspecified osteoarthritis, unspecified site; M79.7 Fibromyalgia; Z88.1 Allergy status to other antibiotic agents; Z88.8 Allergy status to other drugs, medicaments and biological substances; Z91.048 Other nonmedicinal substance allergy status; Z79.4 Long term (current) use of insulin; Z79.82 Long term (current) use of aspirin; Z79.51 Long term (current) use of inhaled steroids; Z79.01 Long term (current) use of anticoagulants; Z86.73 Personal history of transient ischemic attack (TIA), and cerebral infarction without residual deficits
CPT/HCPCS: J2704; J3010

== ENCOUNTER 2018-07-18 15:19 | Emergency (ER) | payer MEDICARE ==
[~2018-07-18] VITALS: Ht 152.4 cm; Wt 77.3 kg
[~2018-07-18 15:19] MED LIST changes: +IRON TABLETS325 MG PO
[2018-07-18 15:23] VITALS: TEMP 97.7
[2018-07-18 15:45] LABS: BASO # 0.1 (0.0-0.2); BASO % 0.6 % (0.0-2.0); EOS # 0.2 (0.0-0.7); EOS % 1.2 % (0-4.0); GRAN # 10.5 (1.4-6.5); GRAN % 73.6 % (42.2-75.2); HEMOGLOBIN 10.1 g/dl (12.5-16.0); LYMPH # 2.3 (1.2-3.4); LYMPH % 15.7 % (20.0-51.0); MEAN CELL VOLUME 101 fl (80.0-100.0); MEAN CORPUSCULAR HEMOGLOBIN 34 pg (27.0-31.0); MEAN CORPUSCULAR HGB CONC 33 g/dl (33.0-37.0); MONO # 1.2 (0.1-0.6); MONO % 8.5 % (1.7-9.3); PLATELET COUNT 257 K/mm3 (130-400); RED BLOOD COUNT 2.98 M/mm3 (4.10-5.30); REDCELL DISTRIBUTION WIDTH-CV 15.2 % (11.5-14.5)
[2018-07-18 15:46] LABS: HEMATOCRIT 30.2 % (37.0-47.0)
[2018-07-18 16:28] LABS: INR 6.2 (0.8-3.0); PROTHROMBIN TIME 70.3 SECONDS (9.7-12.8)
[2018-07-18 16:37] LABS: COLLECTION METHOD CATHETER
[2018-07-18 16:40] LABS: ALBUMIN 3.9 gm/dL (3.5-5.0); BILIRUBIN,TOTAL 0.5 mg/dL (0.0-1.0); CALCIUM 9.6 mg/dL (8.4-10.2); CREATININE, serum 2.13 (0.52-1.25); POTASSIUM 3.9 mmol/L (3.4-5.0); TOTAL PROTEIN 6.9 gm/dL (6.4-8.2)
[2018-07-18 16:48] LABS: GRANULAR CAST >12 /lpf; HYALINE CAST >12 /lpf; MUCOUS Present /lpf; PH 5 (5-8); SQUAMOUS EPITHELIAL 0-2 /hpf; URINE APPEARANCE Cloudy; URINE BACTERIA Rare /hpf; URINE BILIRUBIN Negative (NEGATIVE); URINE BLOOD 3+ (NEGATIVE); URINE COLOR Yellow; URINE GLUCOSE Negative (NEGATIVE); URINE KETONE Negative (NEGATIVE); URINE LEUKOCYTE ESTERASE 1+ (NEGATIVE); URINE NITRATE Negative (NEGATIVE); URINE PROTEIN(semi-quant) 1+ (NEGATIVE)
[2018-07-18 20:59] VITALS: BP 130/44; PULSE 62
== END 2018-07-18 22:01 | disposition short-term general hospital (02) ==
LOC: COL.ER 15:19
PROVIDERS: Emergency Medicine
DX: N39.0 Urinary tract infection, site not specified (principal); I95.9 Hypotension, unspecified; E78.5 Hyperlipidemia, unspecified; N18.9 Chronic kidney disease, unspecified; N17.9 Acute kidney failure, unspecified; I12.9 Hypertensive chronic kidney disease with stage 1 through stage 4 chronic kidney disease, or unspecified chronic kidney disease; E11.22 Type 2 diabetes mellitus with diabetic chronic kidney disease; Z79.51 Long term (current) use of inhaled steroids; Z79.4 Long term (current) use of insulin; Z79.82 Long term (current) use of aspirin; Z86.718 Personal history of other venous thrombosis and embolism; Z86.73 Personal history of transient ischemic attack (TIA), and cerebral infarction without residual deficits; Z90.710 Acquired absence of both cervix and uterus
CPT/HCPCS: A4216; J0696; J7030

== ENCOUNTER 2018-09-27 01:49 | Emergency (ER) | payer MEDICARE ==
[~2018-09-27] VITALS: Ht 152.4 cm; Wt 77.3 kg
[2018-09-27 01:55] VITALS: TEMP 98.1
[2018-09-27 02:34] LABS: BASO # 0.1 (0.0-0.2); BASO % 0.6 % (0.0-2.0); EOS # 0.2 (0.0-0.7); EOS % 1.3 % (0-4.0); GRAN # 10.8 (1.4-6.5); GRAN % 81.1 % (42.2-75.2); LYMPH # 1.4 (1.2-3.4); LYMPH % 10.3 % (20.0-51.0); MEAN CELL VOLUME 96 fl (80.0-100.0); MEAN CORPUSCULAR HGB CONC 31 g/dl (33.0-37.0); MEAN PLATELET VOLUME 10.4 fl (7.4-10.4); MONO # 0.8 (0.1-0.6); MONO % 6.2 % (1.7-9.3); PLATELET COUNT 276 K/mm3 (130-400); RED BLOOD COUNT 2.94 M/mm3 (4.10-5.30); REDCELL DISTRIBUTION WIDTH-CV 13.7 % (11.5-14.5)
[2018-09-27 02:35] LABS: HEMATOCRIT 28.2 % (37.0-47.0); HEMOGLOBIN 8.8 g/dl (12.5-16.0); MEAN CORPUSCULAR HEMOGLOBIN 30 pg (27.0-31.0)
[2018-09-27 02:39] LABS: INR 3.5 (0.8-3.0); PROTHROMBIN TIME 42.1 SECONDS (9.7-12.8)
[2018-09-27 02:41] LABS: PARTIAL THROMBOPLASTIN TIME 38.1 SECONDS (26.0-37.0)
[2018-09-27 02:49] LABS: ALANINE AMINOTRANSFERASE 14 U/L (9-52); ALBUMIN 3.9 gm/dL (3.5-5.0); ALKALINE PHOSPHATASE 74 U/L (50-136); ANION GAP 14 mmol/L (7-16); AST,SGOT 32 U/L (15-37); BILIRUBIN,TOTAL 0.3 mg/dL (0.0-1.0); BLOOD UREA NITROGEN 45 mg/dL (7-17); CALCIUM 9.6 mg/dL (8.4-10.2); CARBON DIOXIDE 26 mmol/L (22-30); CHLORIDE 103 mmol/L (98-107); CREATININE, serum 1.71 (0.52-1.25); GLUCOSE 240 mg/dL (74-106); LIPASE 108 U/L (23-300); POTASSIUM 3.7 mmol/L (3.4-5.0); SODIUM 143 mmol/L (137-145); TOTAL PROTEIN 7.2 gm/dL (6.4-8.2)
[2018-09-27 03:02] LABS: C-REACTIVE PROTEIN < 0.5 mg/dL (0.0-0.9); TROPONIN-I < 0.012 ng/mL (0.000-0.035)
[2018-09-27 03:34] LABS: COLLECTION METHOD CLEAN CATCH
[2018-09-27 03:40] LABS: MUCOUS Present /lpf; PH 5 (5-8); SQUAMOUS EPITHELIAL None Seen /hpf; URINE APPEARANCE Hazy; URINE BACTERIA None Seen /hpf; URINE BILIRUBIN Negative (NEGATIVE); URINE BLOOD Negative (NEGATIVE); URINE COLOR Yellow; URINE GLUCOSE Negative (NEGATIVE); URINE KETONE Negative (NEGATIVE); URINE LEUKOCYTE ESTERASE Negative (NEGATIVE); URINE NITRATE Negative (NEGATIVE); URINE PROTEIN(semi-quant) Negative (NEGATIVE); URINE UROBILINOGEN Negative (NEGATIVE)
[2018-09-27 07:30] VITALS: BP 121/57; PULSE 65
== END 2018-09-27 07:30 | disposition other institution (70) ==
LOC: COL.ER 01:49
PROVIDERS: Emergency Medicine
DX: N39.0 Urinary tract infection, site not specified (principal); E87.2 Acidosis; I12.9 Hypertensive chronic kidney disease with stage 1 through stage 4 chronic kidney disease, or unspecified chronic kidney disease; E11.22 Type 2 diabetes mellitus with diabetic chronic kidney disease; N18.9 Chronic kidney disease, unspecified; E78.5 Hyperlipidemia, unspecified; M79.7 Fibromyalgia; Z86.73 Personal history of transient ischemic attack (TIA), and cerebral infarction without residual deficits; Z90.710 Acquired absence of both cervix and uterus; Z79.01 Long term (current) use of anticoagulants; Z79.82 Long term (current) use of aspirin; Z79.4 Long term (current) use of insulin
CPT/HCPCS: A4216; J0696; J7030

== ENCOUNTER → 2018-10-31 | Outpatient (CLI) | payer MEDICARE ==
[~2018-10-31] MED LIST changes: +DULCOLAX S10 MG/SUPP RC; +ELIQUIS 2.5 PO; +MIRALAX PA17 GM/Dose PO; +NOVOLOG FLEX100 U/ML SQ; +SENNA-S 50 MG-81 TAB PO; +ULTRAM 50MG TAB50 MG PO
[2018-10-31 15:39] LABS: BASO # 0.1 (0.0-0.2); BASO % 0.9 % (0.0-2.0); EOS # 0.5 (0.0-0.7); EOS % 4.8 % (0-4.0); GRAN # 7.3 (1.4-6.5); GRAN % 69.9 % (42.2-75.2); LYMPH # 1.8 (1.2-3.4); LYMPH % 17.2 % (20.0-51.0); MEAN CELL VOLUME 91 fl (80.0-100.0); MEAN CORPUSCULAR HGB CONC 31 g/dl (33.0-37.0); MEAN PLATELET VOLUME 9.8 fl (7.4-10.4); MONO # 0.7 (0.1-0.6); MONO % 6.9 % (1.7-9.3); PLATELET COUNT 351 K/mm3 (130-400); RED BLOOD COUNT 3.03 M/mm3 (4.10-5.30)
[2018-10-31 15:40] LABS: HEMATOCRIT 27.5 % (37.0-47.0); HEMOGLOBIN 8.5 g/dl (12.5-16.0); MEAN CORPUSCULAR HEMOGLOBIN 28 pg (27.0-31.0)
[2018-10-31 15:50] LABS: CALCIUM 8.9 mg/dL (8.4-10.2); CREATININE, serum 1.76 (0.52-1.25); POTASSIUM 4.7 mmol/L (3.4-5.0)
== END ==
LOC: ZLAB.STJ 14:16
PROVIDERS: Family Medicine
DX: I10 Essential (primary) hypertension (principal)

== ENCOUNTER 2018-11-12 14:18 | Emergency (ER) | payer MEDICARE ==
[~2018-11-12] VITALS: Ht 152.4 cm; Wt 77.3 kg
[2018-11-12 14:42] VITALS: BP 154/68
[2018-11-12 17:35] VITALS: PULSE 65; TEMP 98.2
== END 2018-11-12 17:35 | disposition home or self-care (01) ==
LOC: COL.ER 14:18 → EDSTATUS 14:18 → COL.ER 14:48
DX: S82.891A Other fracture of right lower leg, initial encounter for closed fracture (principal); E11.9 Type 2 diabetes mellitus without complications; I10 Essential (primary) hypertension; E78.5 Hyperlipidemia, unspecified; J45.909 Unspecified asthma, uncomplicated; Z86.718 Personal history of other venous thrombosis and embolism; Z90.710 Acquired absence of both cervix and uterus; Z90.49 Acquired absence of other specified parts of digestive tract; Z79.01 Long term (current) use of anticoagulants; Z79.82 Long term (current) use of aspirin; Z79.4 Long term (current) use of insulin; Z86.73 Personal history of transient ischemic attack (TIA), and cerebral infarction without residual deficits; X58.XXXA Exposure to other specified factors, initial encounter